=== PATIENT | female | born 1970 | race Caucasian/White ===

== ENCOUNTER 2019-01-29 16:22 | Emergency (ER) | payer MEDICAID ==
[~2019-01-29] VITALS: Ht 165.1 cm; Wt 103.9 kg
== END 2019-01-29 17:49 | disposition home or self-care (01) ==
LOC: FSED 16:22
DX: K02.9 Dental caries, unspecified (principal)
CPT/HCPCS: 99282

== ENCOUNTER 2020-09-03 08:39 | Emergency (ER) | payer MEDICARE, OTHER ==
[~2020-09-03] VITALS: Ht 165.1 cm; Wt 101.2 kg
[2020-09-03] MEDS ORDERED: BROMFED DM COU118 ML PO (09:24)
[2020-09-03] MEDS ORDERED: CEFDINIR300 MG PO (09:24)
[2020-09-03] MEDS ORDERED: ALBUTEROL2.5 MG/3 M NEB (09:24)
[2020-09-03] MEDS ORDERED: PREDNISONE20 MG PO (09:24)
[2020-09-03] MEDS ORDERED: AZITHROMYCIN500 M3 PO (09:24)
[2020-09-03] MEDS ORDERED: PROAIR HFA INH8.5 GM PO (09:24)
== END 2020-09-03 09:40 | disposition home or self-care (01) ==
LOC: FSED 09:00
DX: H66.93 Otitis media, unspecified, bilateral (principal); J20.9 Acute bronchitis, unspecified; J02.9 Acute pharyngitis, unspecified; J01.90 Acute sinusitis, unspecified; F17.210 Nicotine dependence, cigarettes, uncomplicated
CPT/HCPCS: 99283

== ENCOUNTER 2021-05-11 06:41 | Emergency (ER) | payer OTHER ==
[~2021-05-11] VITALS: Ht 165.1 cm; Wt 97.6 kg
[~2021-05-11 06:41] MED LIST: ALBUTEROL2.5 MG/3 M NEB; AZITHROMYCIN500 M3 PO; BROMFED DM COU118 ML PO; CEFDINIR300 MG PO; PREDNISONE20 MG PO; PROAIR HFA INH8.5 GM PO
[2021-05-11] MEDS ORDERED: ONDANSETRON HCL 4 MG ORAL DISINTEGRATING TAB PO ONE (07:45)
[2021-05-11] MEDS ORDERED: AZITHROMYCIN250 MG PO (07:45)
[2021-05-11] MEDS ORDERED: PREDNISONE20 MG PO (07:45)
[2021-05-11] MEDS ORDERED: VENTOLIN HFA18 GM INH (07:45)
[2021-05-11] MEDS ORDERED: ONDANSETRON ODT4 MG PO (07:46)
== END 2021-05-11 07:51 | disposition home or self-care (01) ==
LOC: FSED 07:33
DX: J20.9 Acute bronchitis, unspecified (principal); E66.9 Obesity, unspecified; F17.200 Nicotine dependence, unspecified, uncomplicated; Z68.35 Body mass index [BMI] 35.0-35.9, adult
CPT/HCPCS: 83518; 87400; 99283; Q0162

== ENCOUNTER 2021-10-31 09:32 | Emergency (ER) | payer OTHER ==
[~2021-10-31] VITALS: Ht 165.1 cm; Wt 99.3 kg
[~2021-10-31 09:32] MED LIST changes: +AZITHROMYCIN250 MG PO; +ONDANSETRON ODT4 MG PO; +SODIUM CHLORIDE FLUSH 10 ML SYR IV PRN; +VENTOLIN HFA18 GM INH
[2021-10-31] MEDS ORDERED: SODIUM CHLORIDE 0.9% 1000ML 1,000 ML IV ONE (09:45)
[2021-10-31 10:17] LABS: BASOPHILS # (AUTO) 0.1 (0.0-0.1); BASOPHILS % 1.4 % (0.0-1.0); EOSINOPHILS # (AUTO) 0.3 (0.0-0.4); EOSINOPHILS % 3.7 % (0.0-6.0); HEMATOCRIT 44.8 % (34.2-44.1); HEMOGLOBIN 14.6 g/dL (12.0-16.0); LYMPHOCYTES # (AUTO) 2.4 (1.0-3.2); MEAN CORPUSCULAR HEMOGLOBIN 29.9 pg (28-32); MEAN CORPUSCULAR HGB CONC 32.6 g/dL (31-35); MEAN CORPUSCULAR VOLUME 91.8 fL (81-99); MONOCYTES # (AUTO) 0.8 (0.2-0.8); MONOCYTES % 9.4 % (4.4-11.3); NEUTROPHILS # (AUTO) 4.9 (2.1-6.9); NEUTROPHILS % 57.3 % (38.7-80.0); PLATELET COUNT 329 x10e3/uL (140-360); RED BLOOD COUNT 4.88 x10e6/uL (3.6-5.1); RED CELL DISTRIBUTION WIDTH 14.7 % (11.7-14.4)
[2021-10-31 10:26] LABS: AMPHETAMINES SCREEN,URINE NEGATIVE (NEGATIVE); BENZODIAZEPINES SCREEN,URINE NEGATIVE (NEGATIVE); PHENCYCLIDINE SCREEN,URINE NEGATIVE (NEGATIVE)
[2021-10-31 10:27] LABS: BACTERIA,URINE FEW /HPF; CLARITY,URINE CLEAR (CLEAR); COLOR,URINE YELLOW (YELLOW); EPITHELIAL CELLS,URINE FEW /LPF; KETONES,URINE NEGATIVE (NEGATIVE); LEUKOCYTE ESTERASE ,URINE NEGATIVE (NEGATIVE); NITRITE,URINE NEGATIVE (NEGATIVE); PROTEIN,URINE DIPSTICK NEGATIVE (NEGATIVE); URINE UROBILINOGEN 0.2 mg/dL (0.2 - 1)
[2021-10-31] MEDS ORDERED: ONDANSETRON HCL INJ 2MG/ML 2ML 2 MG/ML VIAL IV ONE (10:30)
[2021-10-31 10:31] LABS: LIPASE 74 U/L (8-78)
[2021-10-31 10:32] LABS: ALBUMIN 4.1 g/dL (3.5-5.0); ALBUMIN/GLOBULIN RATIO 1.2 (0.8-2.0); CALCIUM 9.2 mg/dL (8.4-10.2); CREATININE, SERUM 0.67 mg/dL (0.57-1.11)
[2021-10-31 10:47] LABS: INR 0.88; PARTIAL THROMBOPLASTIN TIME 34.4 seconds (23.8-35.5); PROTHROMBIN TIME 12.8 seconds (11.9-14.5)
[2021-10-31] MEDS ORDERED: ONDANSETRON ODT4 MG PO (11:40)
[2021-10-31] MEDS ORDERED: CEFDINIR300 MG PO (11:40)
== END 2021-10-31 12:10 | disposition home or self-care (01) ==
LOC: ER 10:25
DX: E86.0 Dehydration (principal); N39.0 Urinary tract infection, site not specified; F17.200 Nicotine dependence, unspecified, uncomplicated; Z71.6 Tobacco abuse counseling; F31.9 Bipolar disorder, unspecified; Z20.822 Contact with and (suspected) exposure to COVID-19
CPT/HCPCS: 36415; 71045; 80053; 80307; 81001; 83690; 84484; 85025; 85610; 85730; 93005; 99283; J2405; J7030; U0002

== ENCOUNTER 2022-07-23 18:11 | Emergency (ER) | payer OTHER ==
[~2022-07-23] VITALS: Ht 165.1 cm; Wt 99.8 kg
[~2022-07-23 18:11] MED LIST changes: -SODIUM CHLORIDE FLUSH 10 ML SYR IV PRN
[2022-07-23] MEDS ORDERED: SODIUM CHLORIDE 0.9% 1000ML 1,000 ML IV STA (18:38)
[2022-07-23] MEDS ORDERED: ONDANSETRON HCL INJ 2MG/ML 2ML 2 MG/ML VIAL IV ONE (18:45)
[2022-07-23] MEDS ORDERED: KETOROLAC TROMETHAMINE 30 MG/ML VIAL IV ONE (18:45)
[2022-07-23] MEDS ORDERED: FAMOTIDINE 20 MG/2 ML VIAL IV ONE (18:45)
[2022-07-23] MEDS ORDERED: SODIUM CHLORIDE 0.9% 1000ML 1,000 ML ONE (19:03)
[2022-07-23] MEDS ORDERED: ONDANSETRON ODT4 MG PO (19:31)
[2022-07-23] MEDS ORDERED: HYDROCODON-ACE1 EA12 PO (19:31)
[2022-07-23] MEDS ORDERED: CEFDINIR300 MG PO (19:31)
[2022-07-23] MEDS ORDERED: KETOROLAC TROME10 MG PO (19:31)
[2022-07-23 19:44] VITALS: BP 136/70
== END 2022-07-23 19:44 | disposition home or self-care (01) ==
LOC: FSED 18:22
DX: N20.0 Calculus of kidney (principal); N39.0 Urinary tract infection, site not specified; I10 Essential (primary) hypertension; J44.9 Chronic obstructive pulmonary disease, unspecified; F17.200 Nicotine dependence, unspecified, uncomplicated; Z79.899 Other long term (current) drug therapy
CPT/HCPCS: 74176; 80053; 81003; 85025; 96374; 96375; 96376; 99284; J1885; J2405; J7030

== ENCOUNTER 2023-09-11 00:16 | Emergency (ER) | payer OTHER ==
[~2023-09-11] VITALS: Ht 165.1 cm; Wt 99.8 kg
[~2023-09-11 00:16] MED LIST changes: +HYDROCODON-ACE1 EA12 PO; +KETOROLAC TROME10 MG PO
[2023-09-11] MEDS: SODIUM CHLORIDE 0.9% 1000ML 1,000 ML IV ONE (00:39)
[2023-09-11] MEDS ORDERED: KETOROLAC TROMETHAMINE 30 MG/ML VIAL ONE (00:40)
[2023-09-11] MEDS ORDERED: ONDANSETRON HCL INJ 2MG/ML 2ML 2 MG/ML VIAL ONE (00:40)
[2023-09-11] MEDS ORDERED: SODIUM CHLORIDE 0.9% 1000ML 1,000 ML ONE (00:41)
[2023-09-11 00:42] LABS: BASOPHILS # (AUTO) 0.1 (0.0-0.1); BASOPHILS % 1.3 % (0.0-1.0); EOSINOPHILS # (AUTO) 0.2 (0.0-0.4); EOSINOPHILS % 2.4 % (0.0-6.0); HEMATOCRIT 39.2 % (34.2-44.1); HEMOGLOBIN 13.2 g/dL (12.0-16.0); LYMPHOCYTES # (AUTO) 2.7 (1.0-3.2); LYMPHOCYTES % 41.7 % (18.0-39.1); MEAN CORPUSCULAR HEMOGLOBIN 30.9 pg (28-32); MEAN CORPUSCULAR HGB CONC 33.7 g/dL (31-35); MEAN CORPUSCULAR VOLUME 91.8 fL (81-99); MONOCYTES # (AUTO) 0.6 (0.2-0.8); MONOCYTES % 9.9 % (4.4-11.3); NEUTROPHILS # (AUTO) 2.8 (2.1-6.9); NEUTROPHILS % 44.4 % (38.7-80.0); PLATELET COUNT 283 x10e3/uL (140-360); RED BLOOD COUNT 4.27 x10e6/uL (3.6-5.1); WHITE BLOOD COUNT 6.35 x10e3/uL (4.8-10.8)
[2023-09-11 00:44] LABS: BILIRUBIN,URINE NEGATIVE (NEGATIVE); CLARITY,URINE CLEAR (CLEAR); COLOR,URINE YELLOW (YELLOW); GLUCOSE, URINE NEGATIVE (NEGATIVE); KETONES,URINE NEGATIVE (NEGATIVE); LEUKOCYTE ESTERASE ,URINE NEGATIVE (NEGATIVE); NITRITE,URINE NEGATIVE (NEGATIVE); PH,URINE 6 (5 - 7); PROTEIN,URINE DIPSTICK NEGATIVE (NEGATIVE); URINE UROBILINOGEN 0.2 mg/dL (0.2 - 1)
[2023-09-11] MEDS: ONDANSETRON HCL INJ 2MG/ML 2ML 2 MG/ML VIAL IV STA (00:54)
[2023-09-11] MEDS: KETOROLAC TROMETHAMINE 30 MG/ML VIAL IV STA (00:55)
[2023-09-11 01:01] LABS: ALBUMIN 4.7 g/dL (3.5-5.0); ALBUMIN/GLOBULIN RATIO 1.5 (0.8-2.0); ANION GAP 14.6 mmol/L (8-16); BILIRUBIN,TOTAL 0.5 mg/dL (0.2-1.2); CALCIUM 9.6 mg/dL (8.4-10.2); CREATININE, SERUM 0.75 mg/dL (0.57-1.11); POTASSIUM 3.6 mmol/L (3.5-5.1); TOTAL PROTEIN 7.9 g/dL (6.5-8.1)
[2023-09-11 01:04] LABS: BACTERIA,URINE MANY /HPF; EPITHELIAL CELLS,URINE FEW /LPF; RBC,URINE 0-5 /HPF (0-5)
[2023-09-11] MEDS ORDERED: IOPAMIDOL 370 MG/ML 100 ML INFUS..BTL INJ ONE (01:17)
[2023-09-11] MEDS ORDERED: FLUCONAZOLE150 MG PO (02:20)
[2023-09-11] MEDS ORDERED: CEFDINIR300 MG PO (02:20)
[2023-09-11] MEDS ORDERED: ONDANSETRON ODT4 MG SL (02:20)
[2023-09-11] MEDS ORDERED: PYRIDIUM200 MG PO (02:20)
[2023-09-11 02:26] VITALS: BP 121/69; PULSE 74; RESP 18; TEMP 97.5; O2SAT 97
[2023-09-11] MEDS ORDERED: MACROBID 100 M100 MG PO (02:30)
== END 2023-09-11 02:34 | disposition home or self-care (01) ==
LOC: ER 00:23
DX: R10.32 Left lower quadrant pain (principal); N39.0 Urinary tract infection, site not specified; R10.2 Pelvic and perineal pain; K57.90 Diverticulosis of intestine, part unspecified, without perforation or abscess without bleeding; N20.0 Calculus of kidney; K76.0 Fatty (change of) liver, not elsewhere classified
CPT/HCPCS: 36415; 74177; 80053; 81001; 83690; 85025; 99284; C9113; J1885; J2405; J7030; Q9967